=== PATIENT | male | born 1930 | race African-American/Black ===

== ENCOUNTER 2017-03-26 11:24 | Inpatient (IN) | payer MEDICARE ==
[2017-03-26] MEDS: ONDANSETRON PF 4 MG/2 ML VIAL. IV (12:22)
[2017-03-26] MEDS: IV NORMAL SALINE 1000ML BAG 1,000 ML IV ×2 (12:22→19:26)
[2017-03-26 12:35] LABS: ADD MAN DIFF? NO
[2017-03-26 12:36] LABS: BASO % 0 % (0-3); EOS % 0 % (0-3); HEMATOCRIT 34.8 % (39.0-53.0); HEMOGLOBIN 10.9 g/dL (13.0-17.5); LYMPH # 0.6 x10^3/uL (1.0-4.8); LYMPH % 8 % (24-48); MEAN CORPUSCULAR HEMOGLOBIN 28 pg (25-35); MEAN CORPUSCULAR HGB CONC 31 g/dL (31-37); MEAN CORPUSCULAR VOLUME 89 fL (79-100); MONO # 0.8 x10^3/uL (0.0-1.1); MONO % 10 % (0-9); NEUT % 81 % (31-73); PLATELET COUNT 111 x10^3/uL (140-400); RED BLOOD COUNT 3.89 x10^6/uL (4.30-5.70); RED CELL DISTRIBUTION WIDTH 18.3 % (11.5-14.5); WHITE BLOOD COUNT 7.4 x10^3/uL (4.0-11.0)
[2017-03-26 12:55] LABS: ANION GAP 13 (6-14); BLOOD UREA NITROGEN 36 mg/dL (8-26); BUN/CREATININE RATIO 24 (6-20); CALCIUM 8.3 mg/dL (8.5-10.1); CARBON DIOXIDE 27 mmol/L (21-32); CHLORIDE 102 mmol/L (98-107); CREATININE 1.5 mg/dL (0.7-1.3); GFR 44.4; GLUCOSE 112 mg/dL (70-99); POTASSIUM 3.6 mmol/L (3.5-5.1); SODIUM 142 mmol/L (136-145)
[2017-03-26 13:00] LABS: TROPONINI 0.229 ng/mL (0.000-0.055)
[2017-03-26 13:01] LABS: ALK PHOS 87 U/L (46-116); ALT (SGPT) 16 U/L (16-63); AST (SGOT) 20 U/L (15-37); LIPASE 89 U/L (73-393); TOTAL BILIRUBIN 0.7 mg/dL (0.2-1.0); TOTAL PROTEIN 6.1 g/dL (6.4-8.2)
[2017-03-26 13:02] LABS: CKMB INDEX 2.4 % (0-4); CREATINE KINASE 83 U/L (39-308)
[2017-03-26] MEDS ORDERED: levOFLOXacin PER PHARMACY. MC (14:00)
[2017-03-26] MEDS ORDERED: ACETAMINOPHEN 325 MG TABLET. PO ×2 (14:00→18:30)
[2017-03-26] MEDS ORDERED: PIP/TAZO PER PHARMACY MC (14:00)
[2017-03-26] MEDS ORDERED: ONDANSETRON PF 4 MG/2 ML VIAL. IV (14:00)
[2017-03-26 14:09] LABS: NT-PRO BNP 9758 pg/mL (0-449)
[2017-03-26 14:28] LABS: FECAL OB PT NEGATIVE (NEG); NEG OBC FOB NEG; POS OBC FOB POS
[2017-03-26] MEDS: PIPERACILLIN/TAZO IV Push 3.375 GM VIAL. IVP ×3 (14:34→23:54)
[2017-03-26] MEDS: fentaNYL PF VIAL 100 MCG/2 ML VIAL IV (14:35)
[2017-03-26] MEDS: VANCOMYCIN 1.25 GM in IV DEXTROSE 5 %-0.2 % NACL 250 ML IV (14:36)
[2017-03-26 14:48] LABS: INFLUENZA A PATIENT NEGATIVE (NEGATIVE); INFLUENZA B PATIENT NEGATIVE (NEGATIVE); OBC FLU VALID
[2017-03-26] MEDS: IPRATRPIUM/ALBUTEROL 0.5/2.5MG 3 ML NEBU. NEB ×2 (16:22→20:19)
[2017-03-26] MEDS: VANCOMYCIN PER PHARMACY MC (16:39)
[2017-03-26] MEDS: RIVAROXABAN 15 MG TABLET. PO (19:25)
[2017-03-26 20:35] LABS: TROPONINI 0.297 ng/mL (0.000-0.055)
[2017-03-26] MEDS: ASCORBIC ACID 500 MG TABLET PO (20:50)
[2017-03-26] MEDS: GABAPENTIN 100 MG CAPSULE. PO (20:50)
[2017-03-26] MEDS: TAMSULOSIN 0.4 MG CAP.ER.24H. PO (20:50)
[2017-03-26] MEDS: MINERAL OIL/PETROLATUM TOPICAL CREAM 113GM JAR. TP (20:51)
[2017-03-26] MEDS: FERROUS SULFATE 325 MG TABLET. PO (20:51)
[2017-03-26] MEDS: ALPRAZolam 0.5 MG TABLET PO (22:16)
[2017-03-27 05:10] LABS: ADD MAN DIFF? NO
[2017-03-27 05:41] LABS: BASO % 1 % (0-3); EOS % 0 % (0-3); HEMATOCRIT 30.2 % (39.0-53.0); HEMOGLOBIN 9.4 g/dL (13.0-17.5); LYMPH # 1.1 x10^3/uL (1.0-4.8); LYMPH % 17 % (24-48); MEAN CORPUSCULAR HEMOGLOBIN 28 pg (25-35); MEAN CORPUSCULAR HGB CONC 31 g/dL (31-37); MEAN CORPUSCULAR VOLUME 88 fL (79-100); MONO # 0.5 x10^3/uL (0.0-1.1); MONO % 8 % (0-9); NEUT # 4.9 x10^3uL (1.8-7.7); NEUT % 74 % (31-73); PLATELET COUNT 92 x10^3/uL (140-400); RED BLOOD COUNT 3.43 x10^6/uL (4.30-5.70); RED CELL DISTRIBUTION WIDTH 18.2 % (11.5-14.5); WHITE BLOOD COUNT 6.6 x10^3/uL (4.0-11.0)
[2017-03-27 05:42] LABS: ANION GAP 13 (6-14); BLOOD UREA NITROGEN 29 mg/dL (8-26); CALCIUM 7.5 mg/dL (8.5-10.1); CARBON DIOXIDE 25 mmol/L (21-32); CHLORIDE 103 mmol/L (98-107); CREATININE 1.3 mg/dL (0.7-1.3); GFR 63.3; GLUCOSE 84 mg/dL (70-99); POTASSIUM 3.8 mmol/L (3.5-5.1); SODIUM 141 mmol/L (136-145)
[2017-03-27] MEDS: PIPERACILLIN/TAZO IV Push 3.375 GM VIAL. IVP ×4 (06:12→23:25)
[2017-03-27] MEDS: IPRATRPIUM/ALBUTEROL 0.5/2.5MG 3 ML NEBU. NEB ×2 (07:36→11:23)
[2017-03-27] MEDS: METOPROLOL SUCC 24HR ER 25 MG TAB.ER.24H. PO (09:00)
[2017-03-27] MEDS: BUMETANIDE 1 MG TABLET. PO ×2 (09:00→14:00)
[2017-03-27] MEDS: VANCOMYCIN PER PHARMACY MC (09:04)
[2017-03-27] MEDS: FINASTERIDE 5 MG TABLET. PO (09:17)
[2017-03-27] MEDS: CETIRIZINE HCL 10 MG TABLET. PO (09:18)
[2017-03-27] MEDS: MINERAL OIL/PETROLATUM TOPICAL CREAM 113GM JAR. TP ×2 (09:18→21:08)
[2017-03-27] MEDS: FERROUS SULFATE 325 MG TABLET. PO ×3 (09:18→21:07)
[2017-03-27] MEDS: GABAPENTIN 100 MG CAPSULE. PO ×3 (09:19→21:07)
[2017-03-27] MEDS: ASCORBIC ACID 500 MG TABLET PO ×3 (09:19→21:07)
[2017-03-27] MEDS: MULTIVITAMIN with MINERAL TABLET. PO (09:19)
[2017-03-27] MEDS: ASPIRIN ENTERIC COATED 81 MG TABLET.DR. PO (09:19)
[2017-03-27 10:26] LABS: PLT ESTIMATE DECREASED (ADEQUATE)
[2017-03-27 10:27] LABS: ANISOCYTOSIS PRESENT; OVALOCYTES PRESENT; POIKILOCYTOSIS PRESENT; TEAR DROP CELLS PRESENT
[2017-03-27] MEDS: IV NORMAL SALINE 1000ML BAG 1,000 ML IV (12:27)
[2017-03-27] MEDS: ANTI-COAG MONITOR BY PHARMACY. MC (12:47)
[2017-03-27] MEDS: VANCOMYCIN 1 GM in IV 1/2 NORMAL SALINE 250 ML IV (14:20)
[2017-03-27] MEDS: ALBUTEROL SULFATE 2.5 MG/3 ML NEBU. NEB ×2 (15:30→19:22)
[2017-03-27] MEDS: RIVAROXABAN 15 MG TABLET. PO (16:31)
[2017-03-27 16:52] LABS: TROPONINI 0.212 ng/mL (0.000-0.055)
[2017-03-27 18:09] LABS: MRSA BY PCR Negative (Negative)
[2017-03-27] MEDS: TAMSULOSIN 0.4 MG CAP.ER.24H. PO (21:07)
[2017-03-28] MEDS: VANCOMYCIN 1 GM in IV 1/2 NORMAL SALINE 250 ML IV (02:05)
[2017-03-28] MEDS: PIPERACILLIN/TAZO IV Push 3.375 GM VIAL. IVP ×3 (05:16→17:32)
[2017-03-28] MEDS: ALBUTEROL SULFATE 2.5 MG/3 ML NEBU. NEB ×4 (07:47→20:00)
[2017-03-28] MEDS: MINERAL OIL/PETROLATUM TOPICAL CREAM 113GM JAR. TP ×2 (09:00→21:48)
[2017-03-28] MEDS: ASCORBIC ACID 500 MG TABLET PO ×3 (09:37→21:43)
[2017-03-28] MEDS: ACETAMINOPHEN 325 MG TABLET. PO (09:37)
[2017-03-28] MEDS: BUMETANIDE 1 MG TABLET. PO ×2 (09:37→14:00)
[2017-03-28] MEDS: FINASTERIDE 5 MG TABLET. PO (09:38)
[2017-03-28] MEDS: ASPIRIN ENTERIC COATED 81 MG TABLET.DR. PO (09:38)
[2017-03-28] MEDS: GABAPENTIN 100 MG CAPSULE. PO ×3 (09:38→21:43)
[2017-03-28] MEDS: CETIRIZINE HCL 10 MG TABLET. PO (09:38)
[2017-03-28] MEDS: FERROUS SULFATE 325 MG TABLET. PO ×3 (09:38→21:43)
[2017-03-28] MEDS: MULTIVITAMIN with MINERAL TABLET. PO (09:38)
[2017-03-28] MEDS: METOPROLOL SUCC 24HR ER 25 MG TAB.ER.24H. PO (09:39)
[2017-03-28] MEDS: ANTI-COAG MONITOR BY PHARMACY. MC (12:47)
[2017-03-28] MEDS: VANCOMYCIN PER PHARMACY MC (12:57)
[2017-03-28 14:02] LABS: VANC TR 18.8 mcg/mL (10.0-20.0)
[2017-03-28] MEDS: RIVAROXABAN 15 MG TABLET. PO (17:32)
[2017-03-28] MEDS: TAMSULOSIN 0.4 MG CAP.ER.24H. PO (21:43)
[2017-03-29] MEDS: PIPERACILLIN/TAZO IV Push 3.375 GM VIAL. IVP ×5 (00:51→23:26)
[2017-03-29 01:02] LABS: ADD MAN DIFF? NO
[2017-03-29 01:26] LABS: VANC TR 14.8 mcg/mL (10.0-20.0)
[2017-03-29 01:42] LABS: BASO % 0 % (0-3); EOS % 0 % (0-3); HEMATOCRIT 27.6 % (39.0-53.0); HEMOGLOBIN 8.7 g/dL (13.0-17.5); LYMPH # 0.6 x10^3/uL (1.0-4.8); LYMPH % 9 % (24-48); MEAN CORPUSCULAR HEMOGLOBIN 28 pg (25-35); MEAN CORPUSCULAR HGB CONC 32 g/dL (31-37); MEAN CORPUSCULAR VOLUME 88 fL (79-100); MONO # 0.7 x10^3/uL (0.0-1.1); MONO % 10 % (0-9); NEUT # 5.5 x10^3uL (1.8-7.7); NEUT % 81 % (31-73); PLATELET COUNT 97 x10^3/uL (140-400); RED BLOOD COUNT 3.12 x10^6/uL (4.30-5.70); RED CELL DISTRIBUTION WIDTH 17.9 % (11.5-14.5); WHITE BLOOD COUNT 6.8 x10^3/uL (4.0-11.0)
[2017-03-29 01:53] LABS: ALBUMIN/GLOBULIN RATIO 0.6 (1.0-1.7); ALK PHOS 58 U/L (46-116); ALT (SGPT) 11 U/L (16-63); ANION GAP 10 (6-14); AST (SGOT) 14 U/L (15-37); BLOOD UREA NITROGEN 20 mg/dL (8-26); BUN/CREATININE RATIO 13 (6-20); CALCIUM 7.8 mg/dL (8.5-10.1); CARBON DIOXIDE 26 mmol/L (21-32); CHLORIDE 104 mmol/L (98-107); CREATININE 1.5 mg/dL (0.7-1.3); GFR 53.7; GLUCOSE 108 mg/dL (70-99); POTASSIUM 3.5 mmol/L (3.5-5.1); SODIUM 140 mmol/L (136-145); TOTAL BILIRUBIN 0.5 mg/dL (0.2-1.0); TOTAL PROTEIN 5.5 g/dL (6.4-8.2)
[2017-03-29] MEDS: VANCOMYCIN 1 GM in IV 1/2 NORMAL SALINE 250 ML IV (01:58)
[2017-03-29] MEDS: VANCOMYCIN PER PHARMACY MC ×2 (02:12→12:33)
[2017-03-29] MEDS: ALBUTEROL SULFATE 2.5 MG/3 ML NEBU. NEB ×4 (07:39→20:16)
[2017-03-29] MEDS: GABAPENTIN 100 MG CAPSULE. PO ×3 (08:17→20:53)
[2017-03-29] MEDS: BUMETANIDE 1 MG TABLET. PO ×2 (08:17→10:30)
[2017-03-29] MEDS: CETIRIZINE HCL 10 MG TABLET. PO (08:17)
[2017-03-29] MEDS: FERROUS SULFATE 325 MG TABLET. PO ×3 (08:19→20:53)
[2017-03-29] MEDS: MULTIVITAMIN with MINERAL TABLET. PO (08:19)
[2017-03-29] MEDS: ASPIRIN ENTERIC COATED 81 MG TABLET.DR. PO (08:19)
[2017-03-29] MEDS: ASCORBIC ACID 500 MG TABLET PO ×3 (08:19→20:53)
[2017-03-29] MEDS: MINERAL OIL/PETROLATUM TOPICAL CREAM 113GM JAR. TP ×2 (08:19→20:53)
[2017-03-29] MEDS: METOPROLOL SUCC 24HR ER 25 MG TAB.ER.24H. PO (08:20)
[2017-03-29] MEDS: FINASTERIDE 5 MG TABLET. PO (08:20)
[2017-03-29] MEDS: RIVAROXABAN 15 MG TABLET. PO (17:12)
[2017-03-29] MEDS: TAMSULOSIN 0.4 MG CAP.ER.24H. PO (20:53)
[2017-03-29] MEDS: LACTOBACILLUS RHAMNOSUS GG 1 CAPSULE. PO (20:53)
[2017-03-30] MEDS: VANCOMYCIN 1 GM in IV 1/2 NORMAL SALINE 250 ML IV (01:42)
[2017-03-30 05:09] LABS: ADD MAN DIFF? NO
[2017-03-30] MEDS: PIPERACILLIN/TAZO IV Push 3.375 GM VIAL. IVP ×3 (05:17→17:08)
[2017-03-30 05:27] LABS: BASO % 0 % (0-3); EOS % 0 % (0-3); HEMATOCRIT 30.2 % (39.0-53.0); HEMOGLOBIN 9.6 g/dL (13.0-17.5); LYMPH # 0.7 x10^3/uL (1.0-4.8); LYMPH % 8 % (24-48); MEAN CORPUSCULAR HEMOGLOBIN 28 pg (25-35); MEAN CORPUSCULAR HGB CONC 32 g/dL (31-37); MEAN CORPUSCULAR VOLUME 88 fL (79-100); MONO # 0.8 x10^3/uL (0.0-1.1); MONO % 9 % (0-9); NEUT # 7.7 x10^3uL (1.8-7.7); NEUT % 83 % (31-73); PLATELET COUNT 119 x10^3/uL (140-400); RED BLOOD COUNT 3.44 x10^6/uL (4.30-5.70); RED CELL DISTRIBUTION WIDTH 17.5 % (11.5-14.5); WHITE BLOOD COUNT 9.3 x10^3/uL (4.0-11.0)
[2017-03-30 05:46] LABS: ALBUMIN 2.2 g/dL (3.4-5.0); ALBUMIN/GLOBULIN RATIO 0.5 (1.0-1.7); ALK PHOS 67 U/L (46-116); ALT (SGPT) 12 U/L (16-63); ANION GAP 10 (6-14); AST (SGOT) 14 U/L (15-37); BLOOD UREA NITROGEN 22 mg/dL (8-26); BUN/CREATININE RATIO 16 (6-20); CALCIUM 8.5 mg/dL (8.5-10.1); CARBON DIOXIDE 27 mmol/L (21-32); CHLORIDE 102 mmol/L (98-107); CREATININE 1.4 mg/dL (0.7-1.3); GFR 58.1; GLUCOSE 108 mg/dL (70-99); POTASSIUM 3.6 mmol/L (3.5-5.1); SODIUM 139 mmol/L (136-145); TOTAL BILIRUBIN 0.6 mg/dL (0.2-1.0); TOTAL PROTEIN 6.3 g/dL (6.4-8.2)
[2017-03-30] MEDS: ALBUTEROL SULFATE 2.5 MG/3 ML NEBU. NEB ×4 (07:50→18:58)
[2017-03-30] MEDS: MINERAL OIL/PETROLATUM TOPICAL CREAM 113GM JAR. TP ×2 (09:00→20:34)
[2017-03-30] MEDS: ASCORBIC ACID 500 MG TABLET PO ×3 (09:08→20:34)
[2017-03-30] MEDS: GABAPENTIN 100 MG CAPSULE. PO ×3 (09:08→20:33)
[2017-03-30] MEDS: BUMETANIDE 1 MG TABLET. PO ×2 (09:08→14:28)
[2017-03-30] MEDS: CETIRIZINE HCL 10 MG TABLET. PO (09:08)
[2017-03-30] MEDS: FERROUS SULFATE 325 MG TABLET. PO ×3 (09:08→20:34)
[2017-03-30] MEDS: ASPIRIN ENTERIC COATED 81 MG TABLET.DR. PO (09:08)
[2017-03-30] MEDS: MULTIVITAMIN with MINERAL TABLET. PO (09:08)
[2017-03-30] MEDS: LACTOBACILLUS RHAMNOSUS GG 1 CAPSULE. PO ×2 (09:08→20:33)
[2017-03-30] MEDS: METOPROLOL SUCC 24HR ER 25 MG TAB.ER.24H. PO (09:08)
[2017-03-30] MEDS: FINASTERIDE 5 MG TABLET. PO (09:08)
[2017-03-30] MEDS: MAGNESIUM HYDROXIDE 2,400 MG/30 ML ORAL.SUSP. PO (09:13)
[2017-03-30] MEDS: VANCOMYCIN PER PHARMACY MC (12:47)
[2017-03-30] MEDS: ANTI-COAG MONITOR BY PHARMACY. MC (14:05)
[2017-03-30] MEDS: RIVAROXABAN 15 MG TABLET. PO (17:07)
[2017-03-30] MEDS: TAMSULOSIN 0.4 MG CAP.ER.24H. PO (20:34)
[2017-03-31] MEDS: PIPERACILLIN/TAZO IV Push 3.375 GM VIAL. IVP ×3 (00:15→13:00)
[2017-03-31] MEDS: VANCOMYCIN 1 GM in IV 1/2 NORMAL SALINE 250 ML IV (01:46)
[2017-03-31 04:50] LABS: ADD MAN DIFF? NO
[2017-03-31 04:53] LABS: BASO % 0 % (0-3); EOS % 0 % (0-3); HEMATOCRIT 29.1 % (39.0-53.0); HEMOGLOBIN 9.4 g/dL (13.0-17.5); LYMPH # 0.6 x10^3/uL (1.0-4.8); LYMPH % 8 % (24-48); MEAN CORPUSCULAR HEMOGLOBIN 28 pg (25-35); MEAN CORPUSCULAR HGB CONC 32 g/dL (31-37); MEAN CORPUSCULAR VOLUME 87 fL (79-100); MONO # 0.8 x10^3/uL (0.0-1.1); MONO % 11 % (0-9); NEUT % 81 % (31-73); PLATELET COUNT 128 x10^3/uL (140-400); RED BLOOD COUNT 3.35 x10^6/uL (4.30-5.70); RED CELL DISTRIBUTION WIDTH 17.5 % (11.5-14.5); WHITE BLOOD COUNT 7.4 x10^3/uL (4.0-11.0)
[2017-03-31 05:30] LABS: ALBUMIN/GLOBULIN RATIO 0.5 (1.0-1.7); ALK PHOS 59 U/L (46-116); ALT (SGPT) 12 U/L (16-63); ANION GAP 9 (6-14); AST (SGOT) 18 U/L (15-37); BLOOD UREA NITROGEN 25 mg/dL (8-26); BUN/CREATININE RATIO 16 (6-20); CALCIUM 8.2 mg/dL (8.5-10.1); CARBON DIOXIDE 27 mmol/L (21-32); CHLORIDE 102 mmol/L (98-107); CREATININE 1.6 mg/dL (0.7-1.3); GFR 49.8; GLUCOSE 97 mg/dL (70-99); POTASSIUM 3.4 mmol/L (3.5-5.1); SODIUM 138 mmol/L (136-145); TOTAL BILIRUBIN 0.5 mg/dL (0.2-1.0); TOTAL PROTEIN 6.1 g/dL (6.4-8.2)
[2017-03-31] MEDS: ALBUTEROL SULFATE 2.5 MG/3 ML NEBU. NEB ×2 (08:24→12:41)
[2017-03-31] MEDS: ASCORBIC ACID 500 MG TABLET PO ×2 (08:44→13:00)
[2017-03-31] MEDS: LACTOBACILLUS RHAMNOSUS GG 1 CAPSULE. PO (08:44)
[2017-03-31] MEDS: BUMETANIDE 1 MG TABLET. PO ×2 (08:44→13:00)
[2017-03-31] MEDS: MAGNESIUM HYDROXIDE 2,400 MG/30 ML ORAL.SUSP. PO (08:44)
[2017-03-31] MEDS: METOPROLOL SUCC 24HR ER 25 MG TAB.ER.24H. PO (08:44)
[2017-03-31] MEDS: MULTIVITAMIN with MINERAL TABLET. PO (08:44)
[2017-03-31] MEDS: FINASTERIDE 5 MG TABLET. PO (08:45)
[2017-03-31] MEDS: MINERAL OIL/PETROLATUM TOPICAL CREAM 113GM JAR. TP (08:45)
[2017-03-31] MEDS: GABAPENTIN 100 MG CAPSULE. PO ×2 (08:45→13:00)
[2017-03-31] MEDS: ASPIRIN ENTERIC COATED 81 MG TABLET.DR. PO (08:45)
[2017-03-31] MEDS: CETIRIZINE HCL 10 MG TABLET. PO (08:45)
[2017-03-31] MEDS: FERROUS SULFATE 325 MG TABLET. PO ×2 (08:45→13:00)
[2017-03-31] MEDS: VANCOMYCIN PER PHARMACY MC (14:09)
[2017-04-01] MEDS ORDERED: PIPERACILLIN/TAZOBACTAM 3.375 GM in IV NORMAL SALINE 50ML 50 ML IV (18:00)
[2017-04-02] MEDS ORDERED: ERGOCALCIFEROL (VITAMIN D2) 50,000 UNIT CAPSULE. PO (09:00)
== END 2017-03-31 16:41 | disposition home or self-care (01) | DRG 177 ==
LOC: ER 11:24 → 5 NORTH 13:43
DX: J69.0 Pneumonitis due to inhalation of food and vomit (principal); I50.43 Acute on chronic combined systolic (congestive) and diastolic (congestive) heart failure; I21.4 Non-ST elevation (NSTEMI) myocardial infarction; C90.00 Multiple myeloma not having achieved remission; D69.6 Thrombocytopenia, unspecified; I42.9 Cardiomyopathy, unspecified; I48.2 Chronic atrial fibrillation; E86.0 Dehydration; D64.9 Anemia, unspecified; I13.0 Hypertensive heart and chronic kidney disease with heart failure and stage 1 through stage 4 chronic kidney disease, or unspecified chronic kidney disease; N18.9 Chronic kidney disease, unspecified; Y95 Nosocomial condition; I25.10 Atherosclerotic heart disease of native coronary artery without angina pectoris; N40.0 Benign prostatic hyperplasia without lower urinary tract symptoms; Z82.49 Family history of ischemic heart disease and other diseases of the circulatory system; Z87.891 Personal history of nicotine dependence; Z95.810 Presence of automatic (implantable) cardiac defibrillator
CPT/HCPCS: 36415; 71045; 80048; 80053; 80202; 82274; 82553; 83690; 83880; 84484; 85025; 86850; 86900; 86901; 87641; 87804; 87804-59; 93005; 93306; 94640; 94760; 96361; 96365; 96375; 99285; 99285-25; J1956; J2405; J2543; J3010; J3370; J7030; J7613; J7620